=== PATIENT | female | born 1965 | race Caucasian/White ===

== ENCOUNTER → 2016-05-18 | Outpatient (CLI) | payer BC ==
[~2016-05-18] MED LIST: AMOX500C3 PO; MESA0.37 PO; MRC50 PO; MULT-506 PO; PRED10TA PO
--- NOTE | 2016-05-18 12:19 | DIAGNOSTIC IMAGING REPORT ---
CHEST 2 VIEWS ROUTINE CLINICAL HISTORY: SOB/ CHEST CONGESTION dyspnea COMPARISON STUDY: No previous studies for comparison. FINDINGS: The bones soft tissues and hemidiaphragms are normal. The cardiomediastinal silhouette is normal. The lungs are clear. The pulmonary vasculature is normal. IMPRESSION: Negative chest. Electronically signed by: Luis Toro M.D. 05/18/2016 12:18 PM Dictated Date/Time: 05/18/2016 12:17 PM
== END | disposition home or self-care (01) ==
LOC: C.RADPV 11:49
PROVIDERS: ATTEND Nurse Practitioner
DX: R09.89 Other specified symptoms and signs involving the circulatory and respiratory systems (principal); R06.02 Shortness of breath

== ENCOUNTER → 2016-07-07 | Outpatient (CLI) | payer BC | END | disposition home or self-care (01) | LOC: C.PATHSPEC 16:57 | PROVIDERS: ATTEND Podiatrist Primary Podiatric Medicine | DX: B07.0 Plantar wart (principal) ==

== ENCOUNTER → 2016-11-01 | Outpatient (CLI) | payer BC ==
--- NOTE | 2016-11-02 12:10 | MAMMOGRAPHY REPORT ---
BILATERAL DIGITAL SCREENING MAMMOGRAM TOMOSYNTHESIS WITH CAD: 11/01/2016 CLINICAL HISTORY: Routine screening. Patient has no complaints. TECHNIQUE: Breast tomosynthesis in addition to standard 2D mammography was performed. Current study was also evaluated with a Computer Aided Detection (CAD) system. COMPARISON: Comparison is made to exams dated: 10/06/2015 mammogram, 09/15/2014 mammogram, 09/09/2014 ma mmogram, 08/21/2013 mammogram, 04/12/2012 mammogram, and 04/10/2012 mammogram - [facility] enter. BREAST COMPOSITION: There are scattered areas of fibroglandular density in both breasts. FINDINGS: No suspicious spiculated or irregular mass, architectural distortion or cluster of microcal cifications is seen. IMPRESSION: ACR BI-RADS CATEGORY 1: NEGATIVE There is no mammographic evidence of malignancy. A 1 year screening mammogram is recommended. The pa tient will receive written notification of the results. Approximately 10% of breast cancers are not detected with mammography. A negative mammographic report should not delay biopsy if a clinically suggestive mass is present. Paula Smyth M.D. ay/:11/01/2016 15:40:08 Clinical Practice Consultant: Arabella VALDEZ(Jesus)(Fabio)(BD), [facility] letter sent: Normal 1/2 BI-RADS Code: ACR BI-RADS Category 1: Negative
== END | disposition home or self-care (01) ==
LOC: C.MAMM 13:49
PROVIDERS: ATTEND Obstetrics & Gynecology
DX: Z12.31 Encounter for screening mammogram for malignant neoplasm of breast (principal)

== ENCOUNTER → 2016-12-14 | Outpatient (CLI) | payer BC | END | disposition home or self-care (01) | LOC: C.PATHSPEC 17:57 | PROVIDERS: ATTEND Podiatrist Primary Podiatric Medicine | DX: B07.9 Viral wart, unspecified (principal) ==

== ENCOUNTER → 2017-01-30 | Day surgery (SDC) | payer BC ==
[2017-01-22 09:47] VITALS: Ht 170.2 cm; Wt 86.4 kg
[~2017-01-30] VITALS: Ht 170.2 cm; Wt 86.4 kg
[~2017-01-30] MED LIST changes: -AMOX500C3 PO; +LIDOCAINE HCL 2% 2 ML VIAL (20MG/ML) ONE; -MULT-506 PO; -PRED10TA PO; +PROPOFOL IV EMULSION 10 MG/ML 20 ML VIAL IV ONE
--- NOTE | 2017-01-30 08:53 | Endo History and Physical ---
History & Physical Date of Service: Jan 30, 2017. Chief Complaint: Ulcerative Proctosigmoiditis Referring Physician: Dorian Bone History of Present Illness 51 yo CF who presents for colonoscopy secondary to ulcerative proctosigmoiditis. Past Surgical History Hx Cardiac Surgery: No Hx Internal Defibrillator: No Hx Pacemaker: No Hx Abdominal Surgery: Yes (TUBAL LIGATION) Hx of Implantable Prosthesis: No Hx Post-Op Nausea and Vomiting: No Hx Cancer Surgery: No Hx Thoracic Surgery: No Hx Orthopedic: Yes (RT BUNIONECTOMY) Hx Urinary Tract Surgery: No Family History IBD Social History Smoking Status: Never Smoker Hx Substance Use: No Hx Alcohol Use: Yes (OCCASIONALLY) Allergies Coded Allergies: Sulfa Drugs (Verified Allergy, Unknown, RASH, 01/30/17) Current Medications Reported Home Medications Medications Dose Route/Sig Max Daily Dose Days Date Category Mercaptopurine 50 Mg Tab 75 Mg PO QAM 30 01/22/17 Reported Apriso (Mesalamine) 0.375 Gm Cap 4 Cap PO QAM 01/14/13 Reported Vital Signs Weight (Kilograms): 86.36 Height (Feet): 5 Height (Inches): 7 Date Time Temp Pulse Resp B/P (MAP) Pulse Ox O2 Delivery O2 Flow Rate FiO2 01/30/17 08:26 36.7 82 16 146/83 (104) 98 Room Air Physical Exam General Appearance: WD/WN, no apparent distress Respiratory/Chest: Auscultation: breath sounds normal Cardiovascular: Heart Auscultation: RRR Abdomen: Bowel Sounds: normal Inspection & Palpation: soft, non-distended, no tenderness, guarding & rebound Assessment and Plan Assessment: 51 yo CF who presents for colonoscopy secondary to ulcerative proctosigmoiditis. Plan: Proceed with colonoscopy.
--- NOTE | 2017-01-30 09:28 | GI REPORT ---
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 Estimated Blood Loss: Estimated blood loss: none. Procedure: Pre-Anesthesia Assessment: - Prior to the procedure, a History and Physical was performed, and patient medications and allergies were reviewed. The patient's tolerance of previous anesthesia was also reviewed. The risks and benefits of the procedure and the sedation options and risks were discussed with the patient. All questions were answered, and informed consent was obtained. Prior Anticoagulants: The patient has taken no previous anticoagulant or antiplatelet agents. ASA Grade Assessment: II - A patient with mild systemic disease. After reviewing the risks and benefits, the patient was deemed in satisfactory condition to undergo the procedure. After I obtained informed consent, the scope was passed under direct vision. Throughout the procedure, the patient's blood pressure, pulse, and oxygen saturations were monitored continuously. The scope was introduced through the anus and advanced to the terminal ileum. The colonoscopy was performed without difficulty. The patient tolerated the procedure well. The quality of the bowel preparation was good. The terminal ileum, ileocecal valve, appendiceal orifice, and rectum were photographed. Findings: Inflammation characterized by loss of vascularity and serpentine ulcerations was found in a continuous and circumferential pattern from the anus to the rectum. This was moderate in severity. Biopsies were taken with a cold forceps for histology. Several random biopsies were obtained with cold forceps for histology in the sigmoid colon, in the descending colon, in the transverse colon and in the ascending colon. Impression: - Inflammation was found from the anus to the rectum secondary to proctitis ulcerative colitis. Biopsied. - Several random biopsies were obtained in the sigmoid colon, in the descending colon, in the transverse colon and in the ascending colon. Recommendation: - Resume previous diet. - Continue present medications. - Await pathology results. - Return to GI office as previously scheduled. Gerry Rosenbaum DO 01/30/2017 9:27:40 AM This report has been signed electronically. Note Initiated On: 01/30/2017 8:52 AM I attest to the content of the Intraoperative Record and orders documented therein, exceptions below
--- NOTE | 2017-01-30 09:29 | Discharge Instructions ---
Endoscopy Patient Instructions Date / Procedure(s) Performed Jan 30, 2017. Colonoscopy Allergy Information Coded Allergies: Sulfa Drugs (Verified Allergy, Unknown, RASH, 01/30/17) Discharge Date / Findings Jan 30, 2017. Ulcerative proctitis s/p biopsies Random colon biopsies Medication Instructions OK to resume all medications today as prescribed Reported Home Medications Medications Dose Route/Sig Max Daily Dose Days Date Category Mercaptopurine 50 Mg Tab 75 Mg PO QAM 30 01/22/17 Reported Apriso (Mesalamine) 0.375 Gm Cap 4 Cap PO QAM 01/14/13 Reported Provider Instructions Activity Restrictions - No exercising or heavy lifting for 24 hours. - Do not drink alcohol the day of the procedure. - Do not drive a car or operate machinery until the day after the procedure. - Do not make any important decisions or sign important papers in 24 hours after the procedure. Following Day: - Return to full activity which may include returning to work/school. Diet Start your diet with liquids and light foods (jello, soup, juice, toast). Then eat your usual diet if not nauseated. Treatment For Common After Affects For mild abdominal pain, bloating, or excessive gas: - Rest - Eat lightly - Lie on right side Follow-Up Information Follow-up with Dorian Bone as scheduled Anesthesia Information What You Should Know You have had a procedure that required some medicine to reduce anxiety and discomfort. This treatment is called moderate sedation. After receiving the treatment, you may be sleepy, but you will be able to breathe on your own. The effects of the treatment may last for several hours. Follow these instructions along with Activity/Diet recommendations noted above: * Do NOT do anything where dizziness or clumsiness would be dangerous. * Rest quietly at home today, then you can be up and about tomorrow. * Have a responsible person stay with you the rest of today. * You may have had an I.V. today. If so, you may take the dressing off later today. Recommendations Call your doctor if: * Trouble breathing * Continuous vomiting for more than 24 hours * Temperature above 101 degrees * Severe abdominal pain or bloating * Pain not relieved by pain medicine ordered * There is increased drainage or redness from any incision * A large amount of rectal bleeding greater than 2-3 tablespoons. (If you had a polyp/s removed or have hemorrhoids, a small amount of blood - from the rectum is to be expected.) * You have any unanswered questions or concerns. IN THE EVENT OF A SERIOUS EMERGENCY, GO TO THE NEAREST EMERGENCY ROOM Your discharge instructions were prepared by provider Gerry Rosenbaum. Patient Instructions Signature Page Donte Garza Patient (or Guardian) Signature/Date: I have read and understand the instructions given to me by my caregivers. Caregiver/RN/Doctor Signature/Date: The above-named patient and/or guardian has received patient instructions on this date. + Original Patient Signature Page (only) stays with chart. Please make copy for patient.
--- NOTE | 2017-01-30 09:37 | Anesthesiology Progress Note ---
Anesthesia Post Op Note Date & Time Jan 30, 2017 at 09:37 Vital Signs Pain Intensity: 0 Vital Signs Past 12 Hours Date Time Temp Pulse Resp B/P (MAP) Pulse Ox O2 Delivery O2 Flow Rate FiO2 01/30/17 09:26 70 18 127/69 (88) 99 Room Air 01/30/17 08:26 36.7 82 16 146/83 (104) 98 Room Air Notes Mental Status: alert / awake / arousable, participated in evaluation Pt Amnestic to Procedure: Yes Nausea / Vomiting: adequately controlled Pain: adequately controlled Airway Patency, RR, SpO2: stable & adequate BP & HR: stable & adequate Hydration State: stable & adequate Anesthetic Complications: no major complications apparent
[2017-01-30 10:02] VITALS: BP 133/89; PULSE 71; O2SAT 99
== END | disposition home or self-care (01) ==
LOC: C.GI 08:08
PROVIDERS: ATTEND Internal Medicine
DX: K51.20 Ulcerative (chronic) proctitis without complications (principal); Z88.2 Allergy status to sulfonamides; Z98.51 Tubal ligation status; Z90.89 Acquired absence of other organs; Z68.29 Body mass index [BMI] 29.0-29.9, adult; Z98.890 Other specified postprocedural states

== ENCOUNTER → 2017-04-05 | Outpatient (CLI) | payer BC ==
[~2017-04-05] MED LIST changes: -LIDOCAINE HCL 2% 2 ML VIAL (20MG/ML) ONE; -PROPOFOL IV EMULSION 10 MG/ML 20 ML VIAL IV ONE
== END | disposition home or self-care (01) ==
LOC: C.PATHSPEC 18:12
PROVIDERS: ATTEND Podiatrist Primary Podiatric Medicine
DX: B07.9 Viral wart, unspecified (principal); L90.5 Scar conditions and fibrosis of skin

== ENCOUNTER → 2017-08-30 | Outpatient (CLI) | payer OTHER | END | disposition home or self-care (01) | LOC: C.PATHSPEC 16:57 | PROVIDERS: ATTEND Podiatrist Primary Podiatric Medicine | DX: B07.9 Viral wart, unspecified (principal) ==

== ENCOUNTER 2025-02-19 14:05 | Inpatient (IN) ==
--- NOTE | 2025-02-19 14:40 | Emergency Department Note ---
Impression & Plan Atrial flutter with rapid ventricular response, Elevated troponin, Leukocytosis, Acute UTI (urinary tract infection) ED Provider Note HISTORY OF PRESENT ILLNESS: Patient is a 59-year-old female presenting with general malaise. Patient reports for the last week she has been feeling generally unwell. Reports feeling very rundown and tired. She also thought she was having some burning with urination and was taking [id number] Azo. She thought that her symptoms were from a UTI. She went to see her primary care provider to be evaluated today, given the persistence of her symptoms. She was found to be significantly tachycardic with a heart rate in the 200s. She had an EKG performed at clinic that reportedly showed SVT with a heart rate of 184 bpm. She was reportedly hypotensive with a blood pressure of 90/54. On arrival to the ER, the patient denies any chest pain or shortness of breath. She denies any chest pain or shortness of breath. Denies any sensation that her heart is racing. She denies any DVT or PE history. Denies any history of cardiac stents. She is not on any anticoagulation or antiplatelet therapies. Denies any recent changes in medication. Denies any recent measured fevers, but does report that the last few days she has been feeling sweaty and chilled. She denies any excessive caffeine intake recently. ROS: as above PHYSICAL EXAM: Constitutional: Patient appears in no acute distress. HENT: Head: Normocephalic and atraumatic. Eyes: EOMI, PERRL Mouth/Throat: Mucous membranes moist. Neck: Trachea midline. Neck supple. Cardiovascular: Tachycardic with regular rhythm. No murmurs, rubs or gallops. Intact distal pulses. Pulmonary/Chest: No respiratory distress. Breath sounds clear and equal bilaterally. No wheezes or rales. Abdominal: Abdomen soft, no tenderness, rebound or guarding. Musculoskeletal: No edema, tenderness or deformity noted. Skin: Warm and dry. No rash, erythema, pallor or cyanosis Psychiatric: Appropriate mood and affect for situation. Neurological: Alert and keenly responsive. CN II-XII grossly intact, moving all extremities equally and fully. MDM: - Vitals signs showed tachycardia. Bilateral IV access was obtained. Patient given 10 mg IV Cardizem on arrival to the ER. - History obtained via patient. History as above. - Chronic conditions affecting care: GERD; paroxysmal SVT - Differential diagnoses include, but are not limited to: Dysrhythmia; electrolyte abnormality; ACS; PE; pneumonia; UTI; sepsis - Order placed for continuous cardiac monitoring. At this time, monitor showed rate of 192 bpm with regular rhythm, per my interpretation. - External medical records reviewed. Primary care visit note from today was reviewed. Patient was diagnosed with a UTI at her visit and ciprofloxacin was ordered. She had a heart rate of 184 in clinic and EKG reportedly showed SVT. She had pressures of 90/54. - EKG image interpreted by myself showed atrial tachycardia. Rate 205 bpm. QT 212. No acute ischemic changes. - Patient given 10 mg IV cardizem, with little improvement in her heart rate. Did discuss adenosine dosing with the patient to determine her underlying rhythm. She was agreeable. - case monitor and pads placed on patient. 6 mg IV adenosine was pushed with little improvement in the patient's tachycardia. An additional 12 mg of adenosine was pushed and rhythm strip was obtained. Patient did have some improvement in her heart rate which showed that she has underlying atrial flutter on rhythm strip. However, she did start to become tachycardic again with a heart rate in the 190s. Blood pressures remaining stable in the 120s systolic. - Laboratory workup interpreted by myself showed leukocytosis (WBC 17.18) with neutrophil predominance; normal PT/INR; stable electrolytes; normal TSH; normal lipase; normal AST/ALT; elevated troponin (231.4) - Blood cultures, lactate and procalcitonin added to workup. - Discussed case with [facility] template cutter electronic transaction implementer, Dr. Rogers, at 14:55. Recommended that the patient given several doses of 5 mg IV metoprolol to see if patient's rate can be controlled. - Patient given 5 mg IV lopressor x2 with slight improvement of HR to 130s. - Low-dose heparin drip ordered - 1L NS ordered - Elevated troponin likely secondary to demand ischemia from tachycardia. - Patient reportedly had a urinary tract infection with urine dip stick at PCP. 2g IV rocephin ordered - Discussion was had with caseworker intake about patient's case and need for admission - Hospitalist consulted for admission - Patient admitted to [facility] hospitalist service for further evaluation and management. I have personally spent 63 minutes of critical care time in the direct management of this patient. This includes bedside care, interpretation of diagnostic studies, and testing, discussion with consultants, patient, and family members, and other required patient management activities. This 63 minutes is in excess of all separately billable procedures. ASSESSMENT AND PLAN: Diagnosis: atrial flutter with rapid ventricular rate; elevated troponin; leukocytosis; acute UTI Plan: admit Past Med/Surg History Problem List (Updated 02/19/25 @ 16:04 by Alicia Do MD) Acute UTI (urinary tract infection) (Acute) Leukocytosis (Acute) Elevated troponin (Acute) Atrial flutter with rapid ventricular response (Acute) UTI (urinary tract infection) Mild pulmonary valve regurgitation Mild mitral regurgitation PSVT (paroxysmal supraventricular tachycardia) GERD (gastroesophageal reflux disease) (Acute) BMI 31.0-31.9,adult (Acute) Ulcerative proctosigmoiditis (Acute) Vertigo (Acute) Migraine Medical History Seasonal allergies Hx of vertigo Hx of migraines PSVT (paroxysmal supraventricular tachycardia) GERD (gastroesophageal reflux disease) Ulcerative colitis History of cardiac murmur as a child History of hypertension History of abnormal mammogram Surgical History [place] teeth removed H/O foot surgery Hx of tubal ligation History of flexible sigmoidoscopy History of bunionectomy History of colonoscopy (12/27/22) Family History Mother Diabetes Brother Diverticulitis Sister IBS (irritable bowel syndrome) Family/Other Cancer Diabetes Father Throat cancer Other No family history of adverse response to anesthesia Denies family history of Ovarian cancer Breast cancer Colorectal cancer Social History Smoking Status: Never smoker Second Hand Exposure: No; Do You Dip or Chew Tobacco: No; Hx Alcohol Use: Yes Alcohol type: wine and hard liquor Hx Substance Use: No Preferred Language: Nepali Communication Ability: Effective Clean Rice Broker Required: No Beliefs That Will Affect Care: None marital status: Current Living Situation: Spouse Current Living Situation Comment: Lives with and adult son current occupational status: employed current occupation: [employer] Feels Safe at Home: Yes Childhood Exposure to Second-Hand Smoke: Yes caffeine: Yes Dental Care, Regularly: Yes Physical Activity Frequency: Daily Seatbelt Use: always Sunscreen Use: Yes Assistive Devices: Glasses Allergies Allergies Allergy/AdvReac Type Severity Reaction Status Date / Time Sulfa (Sulfonamide Allergy Mild RASH Verified 02/19/25 13:08 Antibiotics) Home Meds Home Medications Medication Instructions Recorded Confirmed estradiol 0.01% (0.1 mg/gram) 1 g vaginal 2XWK PRN DRYNESS 12/26/24 02/19/25 vaginal cream (Estrace) Previous Rx's Medication Instructions Recorded omeprazole 20 mg capsule,delayed 20 mg PO DAILY PRN Heartburn #30 09/23/24 release caps ciprofloxacin HCl 500 mg tablet 500 mg PO Q12H 7 days #14 tabs 02/19/25 Results & Data (ED) Vital Signs Vital Signs - 24 hr 02/19/25 14:07 02/19/25 14:25 02/19/25 14:31 Temperature 36.7 C Temperature Source Skin Pulse Rate 163 H Pulse Rate [Apical] Pulse Rhythm [Apical] Pulse Strength [Apical] Respiratory Rate 20 Respiratory Effort / Characteristics Non-Labored Spontaneous Respiratory Depth Normal Respiratory Pattern Regular Blood Pressure 110/64 Blood Pressure [Right Arm] Blood Pressure Mean 79 Blood Pressure Mean [Right Arm] Pulse Oximetry 94 96 96 Oxygen Delivery Method Room Air Room Air Room Air Oxygen Flow Rate 0 Sepsis Recent Fever Within 48 Hours No Sepsis New/Unexplained Change in Mental Status N/A Sepsis Action Taken by Nursing No Action Required 02/19/25 14:32 02/19/25 14:32 02/19/25 14:50 Temperature Temperature Source Pulse Rate 202 H Pulse Rate [Apical] 189 H 195 H Pulse Rhythm [Apical] Regular Regular Pulse Strength [Apical] Normal Respiratory Rate 18 16 Respiratory Effort / Characteristics Non-Labored Spontaneous Non-Labored Spontaneous Respiratory Depth Normal Normal Respiratory Pattern Regular Regular Blood Pressure Blood Pressure [Right Arm] 120/87 126/99 Blood Pressure Mean Blood Pressure Mean [Right Arm] 98 108 Pulse Oximetry 99 Oxygen Delivery Method Nasal Cannula Oxygen Flow Rate 2 Sepsis Recent Fever Within 48 Hours Sepsis New/Unexplained Change in Mental Status Sepsis Action Taken by Nursing 02/19/25 15:10 02/19/25 15:21 02/19/25 15:28 Temperature Temperature Source Pulse Rate 196 H 130 H 150 H Pulse Rate [Apical] Pulse Rhythm [Apical] Pulse Strength [Apical] Respiratory Rate Respiratory Effort / Characteristics Respiratory Depth Respiratory Pattern Blood Pressure 102/85 109/81 110/78 Blood Pressure [Right Arm] Blood Pressure Mean Blood Pressure Mean [Right Arm] Pulse Oximetry Oxygen Delivery Method Oxygen Flow Rate Sepsis Recent Fever Within 48 Hours Sepsis New/Unexplained Change in Mental Status Sepsis Action Taken by Nursing 02/19/25 15:35 02/19/25 15:52 Temperature Temperature Source Pulse Rate 158 H 168 H Pulse Rate [Apical] Pulse Rhythm [Apical] Pulse Strength [Apical] Respiratory Rate Respiratory Effort / Characteristics Respiratory Depth Respiratory Pattern Blood Pressure 108/76 104/78 Blood Pressure [Right Arm] Blood Pressure Mean Blood Pressure Mean [Right Arm] Pulse Oximetry Oxygen Delivery Method Oxygen Flow Rate Sepsis Recent Fever Within 48 Hours Sepsis New/Unexplained Change in Mental Status Sepsis Action Taken by Nursing Laboratory Data 02/19/25 14:25 02/19/25 14:25 Lab Results 02/19/25 02/19/25 Range/Units 14:25 15:29 WBC 17.18 H (4.8-10.8) K/ul RBC 4.54 (4.20-5.40) M/uL Hgb 14.0 (12.0-16.0) g/dl Hct 41.6 (37.0-47.0) % MCV 91.6 (80.0-100.0) fL MCH 30.8 (25.0-34.0) pg MCHC 33.7 (32.0-36.0) g/dL RDW Std Deviation 47.0 H (36.4-46.3) fL RDW Coeff of [place] 14.0 (11.5-14.5) % Plt Count 325 (130-400) K/uL MPV 9.6 (9.4-12.4) fL Immature Gran % (Auto) 0.3 % Neut % (Auto) 77.7 % Lymph % (Auto) 9.1 % [place] % (Auto) 12.6 % Eos % (Auto) 0.0 % Baso % (Auto) 0.3 % Neut # (Auto) 13.34 H (1.40-6.50) K/uL Lymph # (Auto) 1.56 (1.20-3.40) K/uL [place] # (Auto) 2.17 H (0.11-0.59) K/uL Eos # (Auto) 0.00 (0.00-0.50) K/uL Baso # (Auto) 0.05 (0.00-0.20) K/uL Immature Gran # (Auto) 0.06 (0.01-0.20) K/uL PT 11.4 (9.0-12.0) Seconds INR 1.1 (0.9-1.1) Sodium 136 (136-145) mmol/L Potassium 3.6 (3.5-5.1) mmol/L Chloride 98 (98-107) mmol/L Carbon Dioxide 26 (21-32) mmol/L Anion Gap 12 H (3-11) BUN 16 (6-23) mg/dl Creatinine 1.19 (0.6-1.2) mg/dl Est Cr Clr Drug Dosing 60.7 ml/min eGFR 53.33 BUN/Creatinine Ratio 13.4 (10-20) Glucose 123 H (70-99(Fasting)) mg/dl Lactate 0.9 (0.4-2.0) mmol/L Calcium 9.3 (8.6-10.3) mg/dl Magnesium 2.0 (1.7-2.4) mg/dl Total Bilirubin 0.8 (0.2-1.0) mg/dl AST 18 (13-39) U/L ALT 15 (7-52) U/L Alkaline Phosphatase 54 (34-104) U/L Total Protein 8.4 H (6.0-8.3) gm/dl Albumin 4.2 (3.4-5.0) gm/dl Globulin 4.2 H (2.5-4.0) gm/dl Albumin/Globulin Ratio 1.0 (0.9-2) Lipase 20 (11-82) U/L TSH 0.612 (0.300-4.500) uIu/ml Administered Medications Sodium Chloride (Nss) 1,000 mls @ 999 mls/hr IV .Q1H1M ONE Stop: 02/19/25 16:04 Last Admin: 02/19/25 15:07 Dose: 999 mls/hr Documented By: micheal Metoprolol Tartrate (Metoprolol Tartrate 1 Mg/Ml Vial) 5 mg IV Q5M PRN PRN Reason: Tachycardia Stop: 03/21/25 15:00 Last Admin: 02/19/25 15:52 Dose: 5 mg Documented By: micheal Admin: 02/19/25 15:28 Dose: 5 mg Documented By: micheal Discontinued Medications Adenosine (Adenosine Iv Soln 3 Mg/Ml 2 Ml Vial) 6 mg IV NOW STA Stop: 02/19/25 14:41 Last Admin: 02/19/25 14:48 Dose: 6 mg Documented By: micheal Diltiazem HCl (Diltiazem Hcl 5 Mg/Ml 5 Ml Vial) 10 mg IV NOW STA Stop: 02/19/25 14:37 Last Admin: 02/19/25 14:42 Dose: 10 mg Documented By: micheal Co-signed By: TREVON Ceftriaxone Sodium (Rocephin) 2,000 mg in 50 mls @ 100 mls/hr IV NOW STA Stop: 02/19/25 15:33 Last Admin: 02/19/25 15:53 Dose: 100 mls/hr Documented By: micheal Metoprolol Tartrate (Metoprolol Tartrate 1 Mg/Ml Vial) 5 mg IV NOW STA Stop: 02/19/25 15:02 Last Admin: 02/19/25 15:10 Dose: 5 mg Documented By: micheal Imaging Data Radiologist's Impression: Chest X-Ray 02/19/25 14:15 XR chest 1V portable CLINICAL HISTORY: Chest pain, nonspecific COMPARISON STUDY: 01/01/2025 FINDINGS: Stable mild cardiomegaly without pulmonary vascular congestion. No consolidation or pleural effusion. No pneumothorax. IMPRESSION: No acute findings. ACT 112: Negative or not required by law. Electronically signed by: Khari Pierce M.D. 02/19/2025 3:26 PM Discharge Plan Visit Data Chief Complaint: Cardiac Assessment Stated Complaint: HEART ISSUES ED Provider: Alicia Do Discharge Problem: Atrial flutter with rapid ventricular response, Elevated troponin, Leukocytosis, Acute UTI (urinary tract infection) Patient Disposition: Admitted As Inpatient Condition: Fair Forms Stand Alone Forms: [facility] [place] [employer] Prescriptions Prescriptions: No Action omeprazole 20 mg capsule,delayed release(DR/EC) 20 mg PO DAILY PRN (Reason: Heartburn) Qty: 30 3RF ciprofloxacin HCl 500 mg tablet 500 mg PO Q12H 7 Days Qty: 14 0RF estradiol [Estrace] 0.01 % (0.1 mg/gram) cream 1 g vaginal 2XWK PRN (Reason: DRYNESS) Rx Instructions: 1 g vaginally; apply daily at bedtime for 6 weeks then every other day for 6 weeks followed by twice weekly thereafter. Referrals Referrals: Pratima Rouse CRNP [Primary Care Provider] -
[2025-02-19 14:41] LABS: Hematocrit (blood only) 41.6 % (37.0-47.0); Hemoglobin 14.0 g/dl (12.0-16.0); Immature Granulocytes # (auto) 0.06 K/uL (0.01-0.20); Immature Granulocytes % (auto) 0.3 %; Mean Corpuscular Hemoglobin 30.8 pg (25.0-34.0); Mean Corpuscular Volume 91.6 fL (80.0-100.0); Platelet Count 325 K/uL (130-400); RDW Standard Deviation 47.0 fL (36.4-46.3); Red Blood Count 4.54 M/uL (4.20-5.40); White Blood Count 17.18 K/ul (4.8-10.8)
[2025-02-19] MEDS: ADENOSINE IV SOLN 3 MG/ML 2 ML VIAL IV STA (14:48)
[2025-02-19 15:01] LABS: Alanine Aminotransferase 15.0 U/L (7-52); Albumin Globulin Ratio 1.0 (0.9-2); Albumin Level 4.2 gm/dl (3.4-5.0); Alkaline Phosphatase 54.0 U/L (34-104); Anion Gap 12.0 (3-11); Bilirubin,Total 0.8 mg/dl (0.2-1.0); Blood Urea Nitrogen 16.0 mg/dl (6-23); Calcium 9.3 mg/dl (8.6-10.3); Carbon Dioxide 26.0 mmol/L (21-32); Chloride 98.0 mmol/L (98-107); Creatinine Clr Calc Pharmacy 60.7 ml/min; Globulin 4.2 gm/dl (2.5-4.0); Glucose 123.0 mg/dl (70-99(Fasting)); Lipase 20.0 U/L (11-82); Magnesium 2.0 mg/dl (1.7-2.4); Potassium 3.6 mmol/L (3.5-5.1); Sodium 136.0 mmol/L (136-145); Total Protein 8.4 gm/dl (6.0-8.3)
[2025-02-19 15:05] LABS: INR 1.1 (0.9-1.1); Prothrombin Time 11.4 Seconds (9.0-12.0)
[2025-02-19] MEDS: SODIUM CHLORIDE 0.9% 1,000 ML IV ONE (15:07)
[2025-02-19] MEDS: METOPROLOL TARTRATE 1 MG/ML VIAL IV STA (15:10)
[2025-02-19 15:16] LABS: Thyroid Stimulating Hormone 0.612 uIu/ml (0.300-4.500)
[2025-02-19] MEDS: METOPROLOL TARTRATE 1 MG/ML VIAL IV PRN (15:28)
--- NOTE | 2025-02-19 15:28 | XRay Report ---
XR chest 1V portable CLINICAL HISTORY: Chest pain, nonspecific COMPARISON STUDY: 01/01/2025 FINDINGS: Stable mild cardiomegaly without pulmonary vascular congestion. No consolidation or pleural effusion. No pneumothorax. IMPRESSION: No acute findings. ACT 112: Negative or not required by law. Electronically signed by: Khari Pierce M.D. 02/19/2025 3:26 PM
--- NOTE | 2025-02-19 15:32 | Electrocardiogram Report ---
Test Reason : Blood Pressure : */* mmHG Vent. Rate : 205 BPM Atrial Rate : * BPM P-R Int : * ms QRS Dur : 74 ms QT Int : 212 ms P-R-T Axes : * 48 -28 degrees QTcB Int : 391 ms Atrial fibrillation with rapid ventricular response Marked ST abnormality, possible inferior subendocardial injury Abnormal ECG When compared with ECG of 01-Jan-2025 09:41, Significant changes have occurred Confirmed by Dileep Rogers ([id number]) on 02/19/2025 3:32:23 PM Referred By: REFERRED SELF Confirmed By: Dileep Rogers
--- NOTE | 2025-02-19 15:49 | History & Physical Report ---
Date of Service February 19, 2025 Assessment & Plan (1) Atrial flutter with rapid ventricular response: (2) Sepsis: (3) Acute UTI (urinary tract infection): (4) Elevated troponin: Plan This patient is a 59-year-old female with a history of paroxysmal atrial flutter, SVT/AVNRT, ulcerative colitis, GERD who presents to the ED from her PCP office where she was seen for 2 days of fatigue, fevers, urinary urgency and frequency, sweats, and then developed rapid heart rate to 200 at home as per her Fitbit watch. She has been having 2 episodes a week of atrial flutter where her heart rate goes to almost 200 but it usually last for a few minutes and then goes away on its own. Her first episode of atrial flutter was during her colonoscopy 2 months prior. She has an appointment with cardiology to discuss getting an atrial flutter ablation next week. In her PCP office, she was found to have a UTI and urinalysis but was recommended to come to the ED because of her rapid heart rate. She has some occasional lightheadedness but none currently. Has some constant chest tightness and a little bit of shortness of breath. No passing out. In the ED, she was found to initially be in SVT with a heart rate of 200. She was given IV diltiazem, a dose of adenosine 6 mg and then 12 mg after which she finally slowed her heart rate down to 150 at which point looks like atrial flutter. Cardiology was consulted by the ED and recommended boluses of IV Lopressor. She had received 4 doses of Lopressor 5 mg when I saw her and her heart rate was in the 130s-140s. BPs were stable. Her troponin was elevated at 231. She had a leukocytosis with a WBC count of 17, lactate normal, and procalcitonin elevated 1.35. A CXR was negative. She will be admitted for rapid atrial flutter and UTI with possible acute pyelonephritis. #Rapid atrial flutter/history of AVNRT/elevated troponin-paroxysmal, [id number]- VASc score is 0 however she has had numerous episodes of atrial flutter in the last 6 weeks as documented by her Fitbit watch although most are only lasting less than an hour. Also has a previous history of SVT/AVNRT. Troponin elevated and has some chest tightness and had some ST depressions in inferior and lateral leads when heart rate was in the 200s. Heart rate is slowed to the 140s after numerous doses of IV Lopressor. - Admit PCU for telemetry monitoring - Start diltiazem drip and titrate to heart rate less than 120 - Start metoprolol to tartrate 25 mg p.o. twice daily - Continue heparin drip started in the ED and will likely place her on Eliquis 5 mg p.o. twice daily-Will discuss with cardiology - Consult cardiology for further evaluation - Check echocardiogram - Trend serial troponin, check BMP and magnesium in the a.m. and keep electrolytes replete-give KCl 40 mEq p.o. x 1 now - Hopefully she will convert spontaneously and has an appointment next week to discuss atrial flutter ablation with electrophysiology #UTI/suspected acute pyelonephritis/sepsis-with tachycardia, leukocytosis, fevers at home, urinary urgency and frequency, and UTI on urinalysis here. With elevated procalcitonin. -Start ceftriaxone 2000 mg IV once daily - Follow urine culture and blood cultures - Follow CBC, BMP #GERD/ulcerative colitis-her UC has been in remission for many years. Her colonoscopy was aborted in December due to rapid atrial flutter but she is asymptomatic - Continue omeprazole as needed for GERD symptoms DVT prophylaxis-heparin drip Disposition-admit to PCU History of Present Illness Chief Complaint: Atrial flutter Primary Care Provider: HEIDE Gonzalez This patient is a 59-year-old female with a history of paroxysmal atrial flutter, SVT/AVNRT, ulcerative colitis, GERD who presents to the ED from her PCP office where she was seen for 2 days of fatigue, fevers, urinary urgency and frequency, sweats, and then developed rapid heart rate to 200 at home as per her Fitbit watch. She has been having 2 episodes a week of atrial flutter where her heart rate goes to almost 200 but it usually last for a few minutes and then goes away on its own. Her first episode of atrial flutter was during her colonoscopy 2 months prior. She has an appointment with cardiology to discuss getting an atrial flutter ablation next week. In her PCP office, she was found to have a UTI and urinalysis but was recommended to come to the ED because of her rapid heart rate. She has some occasional lightheadedness but none currently. Has some constant chest tightness and a little bit of shortness of breath. No passing out. In the ED, she was found to initially be in SVT with a heart rate of 200. She was given IV diltiazem, a dose of adenosine 6 mg and then 12 mg after which she finally slowed her heart rate down to 150 at which point looks like atrial flutter. Cardiology was consulted by the ED and recommended boluses of IV Lopressor. She had received 4 doses of Lopressor 5 mg when I saw her and her heart rate was in the 130s-140s. BPs were stable. Her troponin was elevated at 231. She had a leukocytosis with a WBC count of 17, lactate normal, and procalcitonin elevated 1.35. A CXR was negative. She will be admitted for rapid atrial flutter and UTI with possible acute pyelonephritis. Allergies Allergy/AdvReac Type Severity Reaction Status Date / Time Sulfa (Sulfonamide Allergy Mild RASH Verified 02/19/25 13:08 Antibiotics) Home Medications Medication Instructions Recorded Confirmed Type omeprazole 20 mg capsule,delayed 20 mg PO DAILY PRN Heartburn #30 09/23/24 02/19/25 Rx release caps estradiol 0.01% (0.1 mg/gram) 1 g vaginal 2XWK PRN DRYNESS 12/26/24 02/19/25 History vaginal cream (Estrace) ciprofloxacin HCl 500 mg tablet 500 mg PO Q12H 7 days #14 tabs 02/19/25 02/19/25 Rx Past Med/Surg History Problem List (Updated 02/19/25 @ 17:27 by Mi Pascual MD) Sepsis Acute UTI (urinary tract infection) (Acute) Leukocytosis (Acute) Elevated troponin (Acute) Atrial flutter with rapid ventricular response (Acute) UTI (urinary tract infection) Mild pulmonary valve regurgitation Mild mitral regurgitation PSVT (paroxysmal supraventricular tachycardia) GERD (gastroesophageal reflux disease) (Acute) BMI 31.0-31.9,adult (Acute) Ulcerative proctosigmoiditis (Acute) Vertigo (Acute) Migraine Medical History Seasonal allergies Hx of vertigo Hx of migraines PSVT (paroxysmal supraventricular tachycardia) occasional- had testing, no issues GERD (gastroesophageal reflux disease) Ulcerative colitis History of cardiac murmur as a child History of hypertension History of abnormal mammogram Surgical History [place] teeth removed H/O foot surgery plantar fasciectomy>RT Hx of tubal ligation History of flexible sigmoidoscopy History of bunionectomy RIGHT History of colonoscopy (12/27/22) Family History Mother Diabetes Brother Diverticulitis Sister IBS (irritable bowel syndrome) Family/Other Cancer Diabetes Father Throat cancer Other No family history of adverse response to anesthesia Denies family history of Ovarian cancer Breast cancer Colorectal cancer Social History Smoking Status: Never smoker Second Hand Exposure: No; Do You Dip or Chew Tobacco: No; Hx Alcohol Use: Yes Alcohol type: wine and hard liquor Hx Substance Use: No Preferred Language: Welsh Communication Ability: Effective Campus Administrative Assistant Required: No Beliefs That Will Affect Care: None marital status: Current Living Situation: Spouse Current Living Situation Comment: Lives with and adult son current occupational status: employed current occupation: [employer] Feels Safe at Home: Yes Childhood Exposure to Second-Hand Smoke: Yes caffeine: Yes Dental Care, Regularly: Yes Physical Activity Frequency: Daily Seatbelt Use: always Sunscreen Use: Yes Assistive Devices: Glasses Review of Systems Review of Systems: All systems reviewed & are unremarkable except as noted in HPI & below Physical Exam Constitutional: WD/WN, vitals as above Eyes: PERRL, conjunctivae normal, anicteric sclerae ENMT: external ear and nose normal, oropharynx normal Neck: trachea midline, no thyromegaly Respiratory: normal respiratory effort, lungs clear to auscultation Cardiovascular: Rate/Rhythm: + tachycardic and + irregularly irregular Heart Sounds: no murmur Extremities: no edema Chest (Breasts): Chest: normal inspection of chest Gastrointestinal (Abdomen): normal bowel sounds, soft, nontender, no hepatosplenomegaly Musculoskeletal: Extremities: extremities normal to inspection; no cyanosis and no clubbing Skin: no rashes, warm and dry Neurologic: moves all extremities and awake; no focal motor deficits Psychiatric: A+Ox3, euthymic affect Lymphatic: no lymphedema Results & Data Results & Data Vital Signs (Past 12 Hours) Vital Signs Temp Pulse Pulse Resp BP BP Pulse Ox 02/19/25 15:28 150 H 110/78 02/19/25 15:21 130 H 109/81 02/19/25 15:10 196 H 102/85 02/19/25 14:50 195 H 16 126/99 99 02/19/25 14:32 202 H 02/19/25 14:32 189 H 18 120/87 02/19/25 14:31 96 02/19/25 14:25 96 02/19/25 14:07 36.7 C 163 H 20 110/64 94 O2 Del Method O2 Flow Rate 02/19/25 15:28 02/19/25 15:21 02/19/25 15:10 02/19/25 14:50 Nasal Cannula 2 02/19/25 14:32 02/19/25 14:32 02/19/25 14:31 Room Air 0 02/19/25 14:25 Room Air 02/19/25 14:07 Room Air Laboratory Results CBC, CMP, troponin, lactate, procalcitonin, TSH, magnesium reviewed Diagnostic Findings CXR reviewed ECG Additional Comments: ECG on 02/19/2025 at 1415 with SVT, rate 205, ST depression in inferior and lateral leads ECG on 02/19/2025 at 1713 with atrial flutter with variable AV block, rate 151, no ST depressions Code Status & VTE Plan Code Status Full code VTE Prophylaxis Plan VTE Prophylaxis will be ordered: Yes PG Care Time/CCT Total # of Minutes Spent Total Time Spent with Patient: Total time spent is greater than 50% in coordination of care (as documented) at patient's floor/unit and/or counseling patient: Coding Level of Care Code 44961 INT INP/OBS CARE 3/75MIN Diagnoses Atrial flutter with rapid ventricular response I48.92 Sepsis A41.9 Acute UTI (urinary tract infection) N39.0 Elevated troponin R79.89
[2025-02-19] MEDS: cefTRIAXone SODIUM 2,000 MG/50 ML BAG IV STA (15:53)
[2025-02-19] MEDS: Heparin IV Adult Wt-Based Low-Dose *NO* INITIAL Bolus Protocol IV STA (16:18)
[2025-02-19] MEDS: HEPARIN 25000 UNIT/500 ML D5W 25,000 UNITS/500 ML BAG IV SCH (16:18)
[2025-02-19 16:54] LABS: Appearance Urine Cloudy (Clear); Glucose Urine UA Negative (Negative)
[2025-02-19] MEDS ORDERED: STAT IV Infusion **Titration per Protocol STA (17:17)
[2025-02-19] MEDS: POTASSIUM CHLORIDE CRTAB 20 MEQ TABCR PO STA (17:56)
[2025-02-19] MEDS ORDERED: POLYETHYLENE (MIRALAX) 17 GM PACK PO PRN (18:24)
[2025-02-19] MEDS ORDERED: MELATONIN 3 MG TAB PO PRN (18:24)
[2025-02-19] MEDS ORDERED: ONDANSETRON INJ 2 MG/ML 2 ML VIAL IV PRN (18:24)
[2025-02-19] MEDS ORDERED: INFLUENZA VACC TS2025-26(6m+)/PF (IIV3) 0.5mL Syr IM ONE (18:38)
[2025-02-19] MEDS: ACETAMINOPHEN 325 MG TAB PO PRN (19:32)
[2025-02-19] MEDS: METOPROLOL TARTRATE 25 MG TAB PO SCH (21:12)
[2025-02-19 23:43] LABS: ANTI-Xa, UFH(UnfractionatedHep 0.13 IU/ml (0.3-0.7)
[2025-02-20] MEDS ORDERED: Nursing to Pharmacy Communication SCH (00:30)
[2025-02-20] MEDS: HEPARIN IV BOLUS 3,000 UNITS in SYRINGE 0 ML IV ONE (00:33)
[2025-02-20] MEDS: SODIUM CHLORIDE 0.9% 500 ML IV ONE (04:30)
[2025-02-20 07:31] LABS: Hematocrit (blood only) 32.2 % (37.0-47.0); Hemoglobin 10.9 g/dl (12.0-16.0); Immature Granulocytes # (auto) 0.03 K/uL (0.01-0.20); Immature Granulocytes % (auto) 0.3 %; Mean Corpuscular Hemoglobin 31.1 pg (25.0-34.0); Mean Corpuscular Volume 91.7 fL (80.0-100.0); Platelet Count 276 K/uL (130-400); RDW Standard Deviation 46.5 fL (36.4-46.3); Red Blood Count 3.51 M/uL (4.20-5.40); White Blood Count 11.52 K/ul (4.8-10.8)
[2025-02-20 07:47] LABS: Anion Gap 8.0 (3-11); Blood Urea Nitrogen 14.0 mg/dl (6-23); Calcium 8.3 mg/dl (8.6-10.3); Carbon Dioxide 23.0 mmol/L (21-32); Chloride 107.0 mmol/L (98-107); Creatinine Clr Calc Pharmacy 90.8 ml/min; Glucose 105.0 mg/dl (70-99(Fasting)); Potassium 3.4 mmol/L (3.5-5.1); Sodium 138.0 mmol/L (136-145)
[2025-02-20 08:58] LABS: ANTI-Xa, LMWH(Low Molecular Wt 0.28 IU/ML (< 0.10)
[2025-02-20 09:33] LABS: Magnesium 2.1 mg/dl (1.7-2.4)
--- NOTE | 2025-02-20 09:47 | Cardiology Consultation ---
Date of Consultation February 20, 2025 Assessment & Plan (1) PSVT (paroxysmal supraventricular tachycardia): (2) Atrial flutter with rapid ventricular response: (3) Mild mitral regurgitation: (4) Mild pulmonary valve regurgitation: (5) Elevated troponin: (6) Sepsis: (7) Acute UTI (urinary tract infection): Plan Mrs. Garza is a 59 year old female with a history of PSVT, Mild MR, Mild PI, Ulcerative Colitis, Palpitations, and Paroxysmal Atrial Flutter who was admitted on 02/19/25 after presenting with flu-like symptoms/UTI/Possible Urosepsis, and being intermittently but markedly tachycardic with PSVT/AVNRT. She has been having several episodes of tachycardia/palpitations every week, but yesterday these symptoms were very frequent. She was initially diagnosed with A-Flutter on 01/01/25 when she presented to [facility] for her colonoscopy and she was noted to be in atrial flutter. Her colonoscopy was canceled and she was referred to the emergency room. Patient was completely asymptomatic in atrial flutter, she did not have any sensation that her heart was racing or any palpitations while in atrial flutter. EKG confirmed what looks to be typical atrial flutter with variable AV conduction. She had laboratories done showing a normal CBC diff, normal electrolytes although potassium was low normal at 3.6 mmol/L, and she had a normal magnesium level. As they were trying to start IVs on her, she subsequently spontaneously converted back to a normal sinus rhythm. She was not prescribed any negative chronotropic medications, nor was anticoagulation indicated at that point as her [id number] score of 0. Patient admits to feeling brief episodes of fluttering on an almost daily basis. She thinks she is more aware of her heart since she had her initial episode of atrial flutter. She also has a history of an AV jodi reentrant tachycardia. She does monitor her heart rate on her smart watch. Patient is currently feeling much better -- her flu like symptoms are improving and it appears that her AVNRT converted back to a normal sinus rhythm on teleme try. Patient has not had any chest pain, pressure, heaviness, or tightness with her recent palpitations or tachycardias but she did have a bump in her high sensitivity troponin I levels at 396.6 pg/mL and trended down to 306.2 pg/mL. She offers no other complaints. She specifically denies any exertional chest pain, heaviness, tightness, pressure, or discomfort. She denies any exertional neck, jaw, back, or arm pain. She denies any shortness of breath, unusual dyspnea on exertion, orthopnea, PND, or any recent changes in her exertional tolerance. She denies any syncope or any profound near-syncope. Patient is currently on a Diltiazem drip, Heparin, and Metoprolol Tartrate. On admission her serum potassium level was low normal at 3.6 mmol/L, but today it dropped down to 3.4 mmol/L -- so she is getting supplemental potassium chloride. We discussed the fact that she has both an AVNRT and now has had more than 1 episode of typical atrial flutter. She is aware that atrial flutter typically comes back at some point and it will put her at a higher risk of stroke and other cardioembolic phenomena as she ages or develops coexisting conditions. We discussed medications that can be used for both conditions, the fact that at some point she will need to be placed on a blood thinner/anticoagulation. We also discussed the option of catheter based therapy which could be curative of both conditions, then she would not need anticoagulation. Patient was advised to do the followin. Continue Lopressor 25 mg b.i.d. upon discharge. 2. Convert over to Eliquis 5 mg b.i.d. at the time of discharge. 2. Maintain an aerobically active lifestyle. 3. Continue to monitor pulse rate. 4. Arrange for catheter ablation of typical atrial flutter and her AVNRT. Patient is call if any problems, questions, or change in clinical status. Keep appointment on 02/23/25 at 2:[address] Rodríguez to arrange AVNRT and Typical Atrial Flutter Ablation. History of Present Illness Reason for Consultation: -- AVNRT. -- Paroxysmal Atrial Flutter. Requesting Physician: Mi Pascual MD Attending Physician: Dileep Rogers MD History of Present Illness Mrs. Garza is a 59 year old female with a history of PSVT, Mild MR, Mild PI, Ulcerative Colitis, Palpitations, and Paroxysmal Atrial Flutter who was admitted on 02/19/25 after presenting with flu-like symptoms/UTI/Possible Urosepsis, and being intermittently but markedly tachycardic with PSVT/AVNRT. She has been having several episodes of tachycardia/palpitations every week, but yesterday these symptoms were very frequent. She was initially diagnosed with A-Flutter on 01/01/25 when she presented to [facility] for her colonoscopy and she was noted to be in atrial flutter. Her colonoscopy was canceled and she was referred to the emergency room. Patient was completely asymptomatic in atrial flutter, she did not have any sensation that her heart was racing or any palpitations while in atrial flutter. EKG confirmed what looks to be typical atrial flutter with variable AV conduction. She had laboratories done showing a normal CBC diff, normal electrolytes although potassium was low normal at 3.6 mmol/L, and she had a normal magnesium level. As they were trying to start IVs on her, she subsequently spontaneously converted back to a normal sinus rhythm. She was not prescribed any negative chronotropic medications, nor was anticoagulation indicated at that point as her [id number] score of 0. Patient admits to feeling brief episodes of fluttering on an almost daily basis. She thinks she is more aware of her heart since she had her initial episode of atrial flutter. She also has a history of an AV jodi reentrant tachycardia. She does monitor her heart rate on her smart watch. Patient is currently feeling much better -- her flu like symptoms are improving and it appears that her AVNRT converted back to a normal sinus rhythm on telemetry. Patient has not had any chest pain, pressure, heaviness, or tightness with her recent palpitations or tachycardias but she did have a bump in her high sensitivity troponin I levels at 396.6 pg/mL and trended down to 306.2 pg/mL. She offers no other complaints. She specifically denies any exertional chest pain, heaviness, tightness, pressure, or discomfort. She denies any exertional neck, jaw, back, or arm pain. She denies any shortness of breath, unusual dyspnea on exertion, orthopnea, PND, or any recent changes in her exertional tolerance. She denies any syncope or any profound near-syncope. Patient is currently on a Diltiazem drip, Heparin, and Metoprolol Tartrate. On admission her serum potassium level was low normal at 3.6 mmol/L, but today it dropped down to 3.4 mmol/L -- so she is getting supplemental potassium chloride. PMSHx: -- PSVT. -- Mild MR. -- Mild PI. -- Ulcerative Colitis. -- Paroxysmal Atrial Flutter. -- GERD. -- Vertigo. -- Migraine headaches. -- UTI/possible sepsis currently. -- s/p colonoscopies. -- wisdom teeth removed. -- s/p BTL. -- s/p plantar fasciectomy. -- s/p right foot bunionectomy. -- s/p flexible sigmoidoscopy. Social History: -- and lives with her and adult son. -- Employed at [employer]. -- Physically active on a daily basis. -- Life-long non-smoker. Family history as outlined below. Allergies Allergy/AdvReac Type Severity Reaction Status Date / Time Sulfa (Sulfonamide Allergy Mild RASH Verified 02/19/25 13:08 Antibiotics) Home Medications Medication Instructions Recorded Confirmed Type omeprazole 20 mg capsule,delayed 20 mg PO DAILY PRN Heartburn #30 09/23/24 02/19/25 Rx release caps estradiol 0.01% (0.1 mg/gram) 1 g vaginal 2XWK PRN DRYNESS 12/26/24 02/19/25 History vaginal cream (Estrace) ciprofloxacin HCl 500 mg tablet 500 mg PO Q12H 7 days #14 tabs 02/19/25 02/19/25 Rx Patient History Medical History Seasonal allergies Hx of vertigo Hx of migraines PSVT (paroxysmal supraventricular tachycardia) occasional- had testing, no issues GERD (gastroesophageal reflux disease) Ulcerative colitis History of cardiac murmur as a child History of hypertension History of abnormal mammogram Surgical History [place] teeth removed H/O foot surgery plantar fasciectomy>RT Hx of tubal ligation History of flexible sigmoidoscopy History of bunionectomy RIGHT History of colonoscopy (12/27/22) Family History Mother Diabetes Brother Diverticulitis Sister IBS (irritable bowel syndrome) Family/Other Cancer Diabetes Father Throat cancer Other No family history of adverse response to anesthesia Denies family history of Ovarian cancer Breast cancer Colorectal cancer Social History Smoking Status: Never smoker Second Hand Exposure: No; Do You Dip or Chew Tobacco: No; Hx Alcohol Use: No Hx Substance Use: No Preferred Language: German Communication Ability: Effective Form Setter/Driver Required: No Beliefs That Will Affect Care: None marital status: Current Living Situation: Spouse Current Living Situation Comment: Lives with and adult son current occupational status: employed current occupation: [employer] Feels Safe at Home: Yes Childhood Exposure to Second-Hand Smoke: Yes caffeine: Yes Dental Care, Regularly: Yes Physical Activity Frequency: Daily Seatbelt Use: always Sunscreen Use: Yes Assistive Devices: Glasses Review of Systems Review of Systems: -- As per HPI. Physical Exam Physical Exam: Blood pressure is 101/69, pulse is 80 and regular. GENERAL: Patient in no acute distress. HEENT: Head is atraumatic, normocephalic. EOM's intact. Facies symmetric. No perioral cyanosis. NECK: No JVD. JVP is not elevated. Carotid upstrokes are + 2 bilaterally. No bruits. CHEST/LUNGS: Clear to auscultation throughout all lung [place]. No wheezes, rales, or crackles. CVS: S1 and S2 are regular without murmurs, gallops, or rubs. PMI is nonpalpable. No lifts, heaves, or thrills. No abdominal aortic or renal bruits. ABDOMINAL EXAM: Bowel sounds are present. EXTREMITIES: No clubbing or cyanosis. No edema. Extremities are well perfused. NEUROLOGIC EXAM: Patient is awake, alert, and oriented. Pleasant and cooperative. Answers questions appropriately. Speech is clear. MEMBERSHIP CORRESPONDENT: -- Currently in a normal sinus rhythm at normal rates. ECHOCARDIOGRAM has been done but is not read yet. Results & Data Vital Signs (Past 12 Hours) Vital Signs Temp Pulse Pulse Resp BP Pulse Ox O2 Del Method 02/20/25 08:18 36.8 C 80 18 101/69 95 Room Air 02/20/25 05:02 37.7 C H 86 96/63 L 02/20/25 03:41 39.1 C H 97 H 16 105/63 93 Room Air 02/19/25 23:16 37.4 C 78 18 96/60 L 95 Room Air 02/19/25 22:03 81 PG Care Time/CCT Total # of Minutes Spent Total Time Spent with Patient: Total time spent is greater than 50% in coordination of care (as documented) at patient's floor/unit and/or counseling patient:44 Coding [place] [address] IN/OBS CONSULT LVL 5,80M Patient Type Established History Detailed Exam Detailed Medical Decision Making Moderate Complexity Diagnoses PSVT (paroxysmal supraventricular tachycardia) I47.10 Atrial flutter with rapid ventricular response I48.92 Mild mitral regurgitation I34.0 Mild pulmonary valve regurgitation I37.1 Elevated troponin R79.89 Sepsis, due to unspecified organism, unspecified whether acute organ dysfunction present A41.9 Sepsis acute organ dysfunction status: unspecified Sepsis type: sepsis due to unspecified organism Acute UTI (urinary tract infection) N39.0 Time Spent (min) 82 (6) Sepsis Sepsis acute organ dysfunction status: unspecified Sepsis type: sepsis due to unspecified organism Qualified Code(s): A41.9 - Sepsis, unspecified organism
[2025-02-20] MEDS: POTASSIUM CHLORIDE CRTAB 20 MEQ TABCR PO STA (10:47)
--- NOTE | 2025-02-20 11:45 | XCELERA ---
[id number] [id number]
--- NOTE | 2025-02-20 12:37 | Electrocardiogram Report ---
Test Reason : Blood Pressure : */* mmHG Vent. Rate : 151 BPM Atrial Rate : 344 BPM P-R Int : * ms QRS Dur : 84 ms QT Int : 284 ms P-R-T Axes : * 50 62 degrees QTcB Int : 450 ms Atrial fibrillation with rapid ventricular response Abnormal ECG When compared with ECG of 19-Feb-2025 14:15, ST no longer depressed in Inferior leads ST no longer depressed in Anterior leads Confirmed by Dileep Rogers ([id number]) on 02/20/2025 12:37:09 PM Referred By: REFERRED SELF Confirmed By: Dileep Rogers
[2025-02-20] MEDS: APIXABAN 5 MG TABLET PO SCH (12:44)
[2025-02-20] MEDS: cefTRIAXone SODIUM 2,000 MG/50 ML BAG IV SCH (16:48)
--- NOTE | 2025-02-20 17:26 | Hospitalist Progress Note ---
Date of Service February 20, 2025 Assessment & Plan (1) Atrial flutter with rapid ventricular response: (2) Sepsis: (3) Acute UTI (urinary tract infection): (4) Elevated troponin: Plan This patient is a 59-year-old female with a history of paroxysmal atrial flutter, SVT/AVNRT, ulcerative colitis, GERD who presents to the ED from her PCP office with 2 days of fatigue, fevers, urinary urgency and frequency, sweats, and then developed rapid heart rate to 200 at home as per her Fitbit watch. She was admitted for rapid atrial flutter and UTI with acute pyelonephritis. #Rapid atrial flutter/history of AVNRT/elevated troponin-paroxysmal, [id number]- VASc score is 0 however she has had numerous episodes of atrial flutter in the last 6 weeks as documented by her Fitbit watch although most are only lasting less than an hour. Also has a previous history of SVT/AVNRT. Troponin elevated and peaked at 396-had some chest tightness and had some ST depressions in inferior and lateral leads when heart rate was in the 200s. She received IV diltiazem, IV Lopressor, adenosine x 2 and finally converted spontaneously to normal sinus rhythm on the evening of 02/19. She is now feeling much improved. Appreciate cardiology consultation Echocardiogram with LVEF 55-60%, mild MR, no regional wall motion abnormalities -Discontinue diltiazem drip - Continue metoprolol to tartrate 25 mg p.o. twice daily - Transition heparin drip to Eliquis 5 mg p.o. twice daily-hopefully she will be able to discontinue anticoagulation in the future after ablation - Has cardiology evaluation with electrophysiology on Friday 02/23 with plans for ablation - Follow BMP and magnesium in the a.m. and keep electrolytes replete -Continue to monitor on telemetry #UTI/suspected acute pyelonephritis/sepsis-with tachycardia, leukocytosis, fever, urinary urgency and frequency, and UTI on urinalysis here. With elevated procalcitonin. Still having fevers in the hospital but overall feeling better. Tachycardia resolved, leukocytosis improving. Urine culture growing E. coli with sensitivities pending, blood cultures remain no growth to date. Likely contributed to prolonged atrial flutter episode - Continue ceftriaxone 2000 mg IV once daily - Follow final urine culture sensitivities and blood cultures - Follow CBC, BMP in the a.m. - Tylenol as needed for fevers and mild headache, give 1 more liter of normal saline #Hypokalemia-potassium still low at 3.4. Likely secondary to acute illness, poor p.o. intake - Replace with KCl 40 mEq p.o. x 1 - Follow BMP and magnesium in the a.m. #GERD/ulcerative colitis-her UC has been in remission for many years. Her colonoscopy was aborted in December due to rapid atrial flutter but she is asymptomatic - Continue omeprazole as needed for GERD symptoms DVT prophylaxis-heparin drip now converted to Eliquis Disposition-continued stay on PCU, but likely discharge to home on 02/21 if improved from pyelonephritis standpoint Admission and Anticipated Discharge Date Admission Date: February 19, 2025 Subjective Patient feels very exhausted as she did not sleep much last night. She had a fever overnight. Denies flank pain or abdominal pain. No urinary symptoms. She converted to normal sinus rhythm shortly after arrival on the floor yesterday evening. Remains in normal sinus rhythm with rates in the 70s. I discussed her care with cardiology PA. She was having a mild headache later in the day and starting to have a low-grade fever. Decision made to keep her again overnight. Physical Exam Constitutional: WD/WN, vitals as above Neck: trachea midline, no thyromegaly Respiratory: normal respiratory effort, lungs clear to auscultation Cardiovascular: RRR, no murmur, no edema Chest (Breasts): Chest: normal inspection of chest Gastrointestinal (Abdomen): normal bowel sounds, soft, nontender, no hepatosplenomegaly Musculoskeletal: Extremities: extremities normal to inspection; no cyanosis and no clubbing Skin: no rashes, warm and dry Neurologic: moves all extremities and awake; no focal motor deficits Psychiatric: A+Ox3, euthymic affect Lymphatic: no lymphedema Results & Data Results & Data Vital Signs (Past 12 Hours) Vital Signs Temp Pulse Resp BP Pulse Ox O2 Del Method 02/20/25 15:50 37.6 C H 85 18 121/84 96 Room Air 02/20/25 11:00 36.8 C 64 113/75 96 Room Air 02/20/25 08:18 36.8 C 80 18 101/69 95 Room Air Laboratory Results CBC, BMP, urine culture, blood cultures reviewed PG Care Time/CCT Total # of Minutes Spent Total Time Spent with Patient: Total time spent is greater than 50% in coordination of care (as documented) at patient's floor/unit and/or counseling patient: Coding Level of Care Code 24181 SUB INP/OBS CARE 3/50MIN Diagnoses Atrial flutter with rapid ventricular response I48.92 Sepsis, due to unspecified organism, unspecified whether acute organ dysfunction present A41.9 Sepsis acute organ dysfunction status: unspecified Sepsis type: sepsis due to unspecified organism Acute UTI (urinary tract infection) N39.0 Elevated troponin R79.89 (2) Sepsis Sepsis acute organ dysfunction status: unspecified Sepsis type: sepsis due to unspecified organism Qualified Code(s): A41.9 - Sepsis, unspecified organism
[2025-02-20] MEDS: SODIUM CHLORIDE 0.9% 1,000 ML IV SCH (18:35)
[2025-02-21 06:36] LABS: Hematocrit (blood only) 32.5 % (37.0-47.0); Hemoglobin 10.7 g/dl (12.0-16.0); Immature Granulocytes # (auto) 0.03 K/uL (0.01-0.20); Immature Granulocytes % (auto) 0.4 %; Mean Corpuscular Hemoglobin 30.6 pg (25.0-34.0); Mean Corpuscular Volume 92.9 fL (80.0-100.0); Platelet Count 282 K/uL (130-400); RDW Standard Deviation 46.6 fL (36.4-46.3); Red Blood Count 3.50 M/uL (4.20-5.40); White Blood Count 6.89 K/ul (4.8-10.8)
[2025-02-21 06:49] LABS: Alanine Aminotransferase 11.0 U/L (7-52); Albumin Globulin Ratio 1.1 (0.9-2); Albumin Level 3.4 gm/dl (3.4-5.0); Alkaline Phosphatase 39.0 U/L (34-104); Anion Gap 7.0 (3-11); Bilirubin,Total 0.4 mg/dl (0.2-1.0); Blood Urea Nitrogen 12.0 mg/dl (6-23); Calcium 8.4 mg/dl (8.6-10.3); Carbon Dioxide 24.0 mmol/L (21-32); Chloride 111.0 mmol/L (98-107); Creatinine Clr Calc Pharmacy 91.2 ml/min; Globulin 3.2 gm/dl (2.5-4.0); Glucose 96.0 mg/dl (70-99(Fasting)); Magnesium 2.3 mg/dl (1.7-2.4); Potassium 3.8 mmol/L (3.5-5.1); Sodium 142.0 mmol/L (136-145); Total Protein 6.6 gm/dl (6.0-8.3)
[2025-02-21 08:08] VITALS: RESP 18
[2025-02-21 11:56] VITALS: PULSE 71; TEMP 99; O2SAT 97
--- NOTE | 2025-02-21 12:24 | Discharge Summary ---
Discharge Summary Date of Service February 21, 2025 Principal Dx & Hospital Course #1 = Principal Diagnosis (1) Atrial flutter with rapid ventricular response: (2) Sepsis: (3) Acute UTI (urinary tract infection): (4) Elevated troponin: Plan This patient is a 59-year-old female with a history of paroxysmal atrial flutter, SVT/AVNRT, ulcerative colitis, GERD who presents to the ED from her PCP office with 2 days of fatigue, fevers, urinary urgency and frequency, sweats, and then developed rapid heart rate to 200 at home as per her Fitbit watch. She was admitted for rapid atrial flutter and UTI with acute pyelonephritis. #Rapid atrial flutter/history of AVNRT/elevated troponin-paroxysmal, [id number]- VASc score is 0 however she has had numerous episodes of atrial flutter in the last 6 weeks as documented by her Fitbit watch although most are only lasting less than an hour. Also has a previous history of SVT/AVNRT. Troponin elevated and peaked at 396-had some chest tightness and had some ST depressions in inferior and lateral leads when heart rate was in the 200s. She received IV diltiazem, IV Lopressor, adenosine x 2 and finally converted spontaneously to normal sinus rhythm on the evening of 02/19. She is now feeling much improved. Appreciate cardiology consultation Echocardiogram with LVEF 55-60%, mild MR, no regional wall motion abnormalities - Continue metoprolol to tartrate 25 mg p.o. twice daily - Transitioned heparin drip to Eliquis 5 mg p.o. twice daily-hopefully she will be able to discontinue anticoagulation in the future after ablation - Has cardiology evaluation with electrophysiology on Friday 02/23 with plans for ablation #UTI/suspected acute pyelonephritis/sepsis-with tachycardia, leukocytosis, fever, urinary urgency and frequency, and UTI on urinalysis here. With elevated procalcitonin. Fevers have subsided in the hospital and overall feeling better. Tachycardia resolved, leukocytosis much improved. Urine culture growing E. coli that is pansensitive, and blood cultures remain no growth to date. Likely contributed to prolonged atrial flutter episode - She received ceftriaxone 2000 mg IV once daily x 2 doses and will go home on cefuroxime 500 mg p.o. twice daily x 8 more days - Blood cultures will be followed after discharge -Can continue Tylenol as needed for fevers and mild headache at home #Hypokalemia-potassium mildly low at 3.4. Likely secondary to acute illness, poor p.o. intake. Replaced and resolved #GERD/ulcerative colitis-her UC has been in remission for many years. Her colonoscopy was aborted in December due to rapid atrial flutter but she is asymptomatic - Continue omeprazole as needed for GERD symptoms, but hold while on cefuroxime for interaction DVT prophylaxis-heparin drip now converted to Eliquis Disposition-stable for discharge to home Notes For Next Care Provider None Medication Changes From Visit See medication list Admission HPI Per Admitting Provider This patient is a 59-year-old female with a history of paroxysmal atrial flutter, SVT/AVNRT, ulcerative colitis, GERD who presents to the ED from her PCP office where she was seen for 2 days of fatigue, fevers, urinary urgency and frequency, sweats, and then developed rapid heart rate to 200 at home as per her Fitbit watch. She has been having 2 episodes a week of atrial flutter where her heart rate goes to almost 200 but it usually last for a few minutes and then goes away on its own. Her first episode of atrial flutter was during her colonoscopy 2 months prior. She has an appointment with cardiology to discuss getting an atrial flutter ablation next week. In her PCP office, she was found to have a UTI and urinalysis but was recommended to come to the ED because of her rapid heart rate. She has some occasional lightheadedness but none currently. Has some constant chest tightness and a little bit of shortness of breath. No passing out. In the ED, she was found to initially be in SVT with a heart rate of 200. She was given IV diltiazem, a dose of adenosine 6 mg and then 12 mg after which she finally slowed her heart rate down to 150 at which point looks like atrial flutter. Cardiology was consulted by the ED and recommended boluses of IV Lopressor. She had received 4 doses of Lopressor 5 mg when I saw her and her heart rate was in the 130s-140s. BPs were stable. Her troponin was elevated at 231. She had a leukocytosis with a WBC count of 17, lactate normal, and procalcitonin elevated 1.35. A CXR was negative. She will be admitted for rapid atrial flutter and UTI with possible acute pyelonephritis. Discharge Exam Constitutional WD/WN, vitals as above Neck trachea midline, no thyromegaly Respiratory normal respiratory effort, lungs clear to auscultation Cardiovascular RRR, no murmur, no edema Chest (Breasts) Chest: normal inspection of chest Gastrointestinal (Abdomen) normal bowel sounds, soft, nontender, no hepatosplenomegaly Musculoskeletal Extremities: extremities normal to inspection; no cyanosis and no clubbing Skin no rashes, warm and dry Neurologic moves all extremities; no focal motor deficits Psychiatric A+Ox3, euthymic affect Lymphatic no lymphedema Discharge Plan Discharge Items Patient Disposition: Home - Self-Care Reason For Visit: ATRIAL FLUTTER Discharge Diagnosis: Rapid atrial flutter UTI with suspected acute pyelonephritis (kidney infection) Condition on Discharge: Good Activity: Resume your previous activity Non-emergency contact: Primary Care Provider and Continuity Reader Call non-emergency contact if: you have any medication questions, your symptoms worsen and your temperature is above 101 Follow-up/Referrals: Pratima Rouse CRNP [Primary Care Provider] - (Please follow-up within 1-2 weeks) Adiel Rodríguez MD [Physician] - 02/23/25 2:30 pm (Please keep the appointment with Dr. Rodríguez to discuss a cardiac ablation for your atrial flutter.) Diet: Regular Addtl Attending Provider Instructions: You are admitted with persistent rapid atrial flutter which was treated with metoprolol and your heart converted back to a normal sinus rhythm. You were started on Eliquis which is a blood thinner to help prevent stroke associated with atrial flutter. Continue on the metoprolol 25 mg twice a day to slow down the rate of your heart. Please follow-up with the patient transport orderly on Sunday as scheduled to arrange an ablation to help keep atrial flutter from happening in the future. If you have a rapid heartbeat again in the future and it persist for over an hour, please call the patient transport orderly office or come to the hospital. If you have a rapid heartbeat and feel lightheaded, passout, have chest pain or shortness of breath, please also return to the hospital. You are also treated for a kidney infection/urinary tract infection. Please continue to take the antibiotic called cefuroxime twice a day for 8 more days to treat this infection. Here are some guidelines about taking Eliquis: There is an increased risk of blood clots if you stop taking Eliquis. Do not stop taking Eliquis without talking to your doctor. Stopping Eliquis increases your risk of having a stroke. There is an increased risk of bleeding. Eliquis can cause bleeding which can be serious and may lead to . This is because Eliquis is a blood thinner medicine (anticoagulant) that lowers blood clotting. During treatment with Eliquis you are likely to bruise more easily, and it may take longer for bleeding to stop. * If you ever cannot get the bleeding to stop please report to the ER * If you have a bruise that is large/painful or swollen you should also be seen by a medical provider Call your doctor or get medical help right away if you or your child develop any of these signs or symptoms of bleeding: unexpected bleeding or bleeding that lasts a long time, such as: * Nose bleeds that happen often * unusual bleeding from the gums * bleeding that is severe or you cannot control * red, pink or brown urine * bright red or black stools (looks like tar) * cough up blood or blood clots * vomit blood or your vomit looks like coffee grounds If you have a fall and hit your head, please come to the ER and get checked out. Being on a blood thinner increases your risk of brain bleeding with falls. Avoid high risk activities, such as: * standing on tall ladders * riding motorcycles * anything where you are high risk for falls or trauma Avoid taking NSAIDs (pain medication) while you are taking a blood thinner. This includes: * Ibuprofen, Aleve Advil, Naproxen. * If you are ever unsure you can ask your doctor or pharmacist. * Tylenol is SAFE to take. If you have any new or worsening chest pain or shortness of breath please return to the ER. Pending Studies at Discharge: Yes (Final blood cultures-no growth to date) Stand-Alone Forms: My [facility] indico Medications and DC Order Prescriptions: New metoprolol tartrate 25 mg Tablet 25 mg PO BID Qty: 60 0RF Eliquis 5 mg Tablet 5 mg PO BID Qty: 60 0RF cefuroxime axetil 500 mg tablet 500 mg PO BID Qty: 16 0RF acetaminophen 325 mg Tablet 650 mg PO Q4H PRN (Reason: fever or pain) Qty: 30 0RF Rx Instructions: [id number] Continued estradiol [Estrace] 0.01 % (0.1 mg/gram) cream 1 g vaginal 2XWK PRN (Reason: DRYNESS) Rx Instructions: 1 g vaginally; apply daily at bedtime for 6 weeks then every other day for 6 weeks followed by twice weekly thereafter. Held omeprazole 20 mg capsule,delayed release(DR/EC) 20 mg PO DAILY PRN (Reason: Heartburn) Qty: 30 3RF Hold Instructions: Resume on 02/28/25. Do not take while on the antibiotic called cefuroxime Discontinued ciprofloxacin HCl 500 mg tablet 500 mg PO Q12H 7 Days Qty: 14 0RF Discharge Orders: Discharge Order (Routine); Ordered 02/21/25 Ordered By: Mi Pascual Admission Data Admit Date/Time: 02/19/25 17:16 Attending Provider: Mi Pascual Admit Provider: Mi Pascual Primary Care Provider: Pratima Rouse Other Providers: Dileep Rogers; iM Pascual Hospital Stay Data Consultations 02/19/25 15:48 Consult Cardiology Routine 02/19/25 17:37 ED Decision to Admit Stat Pending Results Patient Have Any Pending Studies at Discharge: Yes (Final blood cultures-no growth to date) Discharge Instructions Given to Patient (Per Discharging Provider) You are admitted with persistent rapid atrial flutter which was treated with metoprolol and your heart converted back to a normal sinus rhythm. You were started on Eliquis which is a blood thinner to help prevent stroke associated with atrial flutter. Continue on the metoprolol 25 mg twice a day to slow down the rate of your heart. Please follow-up with the patient transport orderly on Sunday as scheduled to arrange an ablation to help keep atrial flutter from happening in the future. If you have a rapid heartbeat again in the future and it persist for over an hour, please call the patient transport orderly office or come to the hospital. If you have a rapid heartbeat and feel lightheaded, passout, have chest pain or shortness of breath, please also return to the hospital. You are also treated for a kidney infection/urinary tract infection. Please continue to take the antibiotic called cefuroxime twice a day for 8 more days to treat this infection. Here are some guidelines about taking Eliquis: There is an increased risk of blood clots if you stop taking Eliquis. Do not stop taking Eliquis without talking to your doctor. Stopping Eliquis increases your risk of having a stroke. There is an increased risk of bleeding. Eliquis can cause bleeding which can be serious and may lead to . This is because Eliquis is a blood thinner medicine (anticoagulant) that lowers blood clotting. During treatment with Eliquis you are likely to bruise more easily, and it may take longer for bleeding to stop. * If you ever cannot get the bleeding to stop please report to the ER * If you have a bruise that is large/painful or swollen you should also be seen by a medical provider Call your doctor or get medical help right away if you or your child develop any of these signs or symptoms of bleeding: unexpected bleeding or bleeding that lasts a long time, such as: * Nose bleeds that happen often * unusual bleeding from the gums * bleeding that is severe or you cannot control * red, pink or brown urine * bright red or black stools (looks like tar) * cough up blood or blood clots * vomit blood or your vomit looks like coffee grounds If you have a fall and hit your head, please come to the ER and get checked out. Being on a blood thinner increases your risk of brain bleeding with falls. Avoid high risk activities, such as: * standing on tall ladders * riding motorcycles * anything where you are high risk for falls or trauma Avoid taking NSAIDs (pain medication) while you are taking a blood thinner. This includes: * Ibuprofen, Aleve Advil, Naproxen. * If you are ever unsure you can ask your doctor or pharmacist. * Tylenol is SAFE to take. If you have any new or worsening chest pain or shortness of breath please return to the ER. Total Time Total Time Spent Total Time Spent (In Minutes): 35 minutes Total Time Includes: Examination of the Patient, Discharge Planning and Me dication Reconciliation Coding Level of Care Code 92634 INP/OBS DISCH >30 MIN Diagnoses Atrial flutter with rapid ventricular response I48.92 Sepsis, due to unspecified organism, unspecified whether acute organ dysfunction present A41.9 Sepsis type: sepsis due to unspecified organism Sepsis acute organ dysfunction status: unspecified Acute UTI (urinary tract infection) N39.0 Elevated troponin R79.89
[2025-02-21 13:04] VITALS: BP 126/80
--- NOTE | 2025-02-23 10:40 | Coding Query ---
CODING QUERY To promote full compliance with coding requirements relating to patient care, provider participation is requested in all cases of pharmacy retail support specialist uncertainty. Please assist us with the question(s) below: Coding Question(s): Sepsis is documented through the record and on Discharge Summary. Please specify below, the most likely source/cause of Sepsis on admission: (x ) most likely UTI with Acute Pyelonephritis ( ) most likely other: Please Specify ( ) Unknown most likely source/cause Physician's Response(s): Thank you Tonia Jacinto Principal Diagnosis: "that condition established after study, to be chiefly responsible for occasioning the admission of the patient to the hospital for care." Co-Existing Principal Diagnosis: "when two or more diagnoses equally meet the criteria for principal diagnosis as determined by the circumstances of admission, diagnostic work up, and/or therapy provided, and the Alphabetic Index, Tabular List, or another coding guideline does not provide sequencing direction, any one of the diagnoses may be sequenced first." "When the physician has documented what appears to be a current diagnosis in the body of the record, but has not included the diagnosis in the final diagnostic statement, the physician should be asked whether the diagnosis should be added." (Source Coding Clinic 2 QTR90. p3-4) [employer]
== END 2025-02-21 13:45 | disposition home or self-care (01) | DRG 308 ==
LOC: SUATTDRO → ED 14:05 → 2S 17:16